=== PATIENT | male | born 1965 | race Caucasian/White ===

== ENCOUNTER 2019-04-05 19:30 | Emergency (ER) | payer MEDICAID ==
[~2019-04-05] VITALS: Ht 170.2 cm; Wt 86.2 kg
[2019-04-05 19:47] VITALS: Ht 170.2 cm; Wt 86.2 kg
[2019-04-05 21:01] LABS: BASOPHIL % 0.4 % (0-2); PLATELET COUNT 232 x10^3mcL (130-400); RED CELL DISTRIBUTION WIDTH 13.2 % (11.5-14.5)
[2019-04-05 21:11] LABS: CALCIUM 8.8 mg/dL (8.5-10.1); CARBON DIOXIDE 21.7 mmol/L (21-32); CHLORIDE SERUM 102 mmol/L (98-107); CREATININE SERUM 0.9 mg/dL (0.7-1.3); GFR1 > 60 mL/min; GLUCOSE SERUM 401 mg/dL (74-106); SODIUM SERUM 137 mmol/L (136-145)
[2019-04-05 21:16] LABS: ALBUMIN 3.5 g/dL (3.4-5.0); ALKALINE PHOSPHATASE 104 U/L (46-116); ALT/SGPT 26 U/L (16-63); AST/SGOT 6 U/L (15-37); TOTAL PROTEIN, SERUM 7.6 g/dL (6.4-8.2)
[2019-04-05 21:33] LABS: microscopic required? NO
[2019-04-05 21:38] LABS: UA SPECIFIC GRAVITY 1.015 (1.005-1.035); urine erythrocyte NEGATIVE (NEGATIVE)
[2019-04-06 00:22] VITALS: BP 128/88
== END 2019-04-06 00:22 | disposition home or self-care (01) ==
LOC: ED 19:30
PROVIDERS: Emergency Medicine
DX: S33.5XXA Sprain of ligaments of lumbar spine, initial encounter (principal); S50.11XA Contusion of right forearm, initial encounter; E11.65 Type 2 diabetes mellitus with hyperglycemia; I10 Essential (primary) hypertension; Y04.1XXA Assault by human bite, initial encounter; Y93.89 Activity, other specified; Y92.89 Other specified places as the place of occurrence of the external cause; Y99.8 Other external cause status
CPT/HCPCS: 82962; 90715; J1815; J2270; J3490; J7030; Q0092

== ENCOUNTER 2019-04-07 22:24 | Emergency (ER) | payer MEDICAID ==
[~2019-04-07] VITALS: Ht 170.2 cm; Wt 85.0 kg
[2019-04-07 22:26] VITALS: Ht 170.2 cm; Wt 85.0 kg
[2019-04-08 00:16] VITALS: BP 126/86
== END 2019-04-08 00:16 | disposition home or self-care (01) ==
LOC: ED 22:24
DX: S51.851D Open bite of right forearm, subsequent encounter (principal); I10 Essential (primary) hypertension; E11.9 Type 2 diabetes mellitus without complications; W50.3XXD Accidental bite by another person, subsequent encounter

== ENCOUNTER 2019-07-13 23:33 | Emergency (ER) | payer MEDICAID ==
[~2019-07-13] VITALS: Ht 170.2 cm; Wt 88.5 kg
[2019-07-14 01:32] VITALS: BP 121/80
== END 2019-07-14 01:33 | disposition home or self-care (01) ==
LOC: ED 23:33
DX: S39.012A Strain of muscle, fascia and tendon of lower back, initial encounter (principal); M54.42 Lumbago with sciatica, left side; Z87.11 Personal history of peptic ulcer disease; X58.XXXA Exposure to other specified factors, initial encounter; Y93.89 Activity, other specified; Y92.89 Other specified places as the place of occurrence of the external cause; Y99.8 Other external cause status
CPT/HCPCS: J1885

== ENCOUNTER 2020-05-11 18:25 | Emergency (ER) | payer MEDICAID, SELFPAY ==
[~2020-05-11] VITALS: Ht 170.2 cm; Wt 90.7 kg
[2020-05-11 19:07] VITALS: Ht 170.2 cm; Wt 90.7 kg
[2020-05-11 19:10] VITALS: BP 97/67
== END 2020-05-11 19:10 | disposition home or self-care (01) ==
LOC: ED 18:25
DX: U07.1 COVID-19 (principal); B34.9 Viral infection, unspecified
CPT/HCPCS: U0003-CS